=== PATIENT | female | born 1975 | race Two or more races ===

== ENCOUNTER 2025-07-15 05:17 | Emergency (ER) | payer MEDICARE, SELFPAY ==
--- OUTSIDE RECORDS SUMMARY | 2025-05-17 16:00 | XMS_ITS ---
Author Organization [facility] Address [address] [place] [address] Care Team Providers Care Research Manager Name Role Phone Renita Martin Primary Care Provider Migration, Provider Unavailable Unavailable [facility] Conversion Encounter Medications Medication SIG (Take, Route, Frequency, Duration) Notes Start Date End Date Status ALBUTEROL (EQV-VENTOLIN HFA) 90 MCG/INH 2 INH INHALED EVERY 6 HOURS for 30 DAYS *Please review for potential replacement for e-prescription and drug interaction check* Active Amoxicillin 500 MG 1 cap(s) orally twice a day for 10 days 04/15/2025 Active Anoro Ellipta 62.5 MCG-25 MCG/INH 1 INH INHALED ONCE A DAY for 30 DAYS *Please review and pick correct [facility]. If intended option is not shown, discontinue and re-order from Quick Search* 02/26/2025 Active Methadone HCl 10 MG/ML 168 mg orally once a day Active IBU 800 MG 1 tab(s) orally 3 times a day for 10 days Active CEPACOL SORE THROAT EXTRA STRENGTH TANGERINE 15 MG-2.3 MG 1 JERRY ORALLY EVERY 2-4 HOURS for 5 DAYS *Please review for potential replacement for e-prescription and drug interaction check* 04/15/2025 Active Social History Sex Assigned At : Social History Observation Description Sex Assigned At Female Encounters Encounter Location Date Provider Diagnosis [id number] [place] [address] 05/17/2025 Provider Migration Plan Of Treatment Medication Medication Name Sig Start Date Stop Date Notes Amoxicillin 500 MG 1 cap(s) orally twice a day for 10 days 04/15/2025 IBU 800 MG 1 tab(s) orally 3 times a day for 10 days CEPACOL SORE THROAT EXTRA STRENGTH TANGERINE 15 MG-2.3 MG 1 JERRY ORALLY EVERY 2-4 HOURS for 5 DAYS 04/15/2025 *Please review for potential replacement for e-prescription and drug interaction check* Progress Notes * Sapna GRANADOS TDOB:0 1975 (49 yo F)Acc No.[id number]:05/17/2025 Patient: Sapna MEZA Provider: :1975 A ge:49 Y S ex:Female Date:05/17/2025 Address:[address] [place], [place] [id number] Pcp:Renita Martin Subjective: * Chief Complaints: * [facility] * Medical History: * Medications: T aking Methadone HCl 10 MG/ML Concentrate 168 mg orally once a day , Taking Anoro Ellipta 62.5 MCG-25 MCG/INH POWDER 1 INH INHALED ONCE A DAY , Notes to Pharmacist: *Please review and pick correct [facility]. If intended option is not shown, discontinue and re-order from Quick Search*, Taking ALBUTEROL (EQV-VENTOLIN HFA) 90 MCG/INH AEROSOL 2 INH INHALED EVERY 6 HOURS , Notes to Pharmacist: *Please review for potential replacement for e-prescription and drug interaction check* Objective: * Vitals: Assessment: Plan: * Treatment: * Images: Billing Information: * Visit Code: * Procedure Codes: * Electronic signature of Prov ider Migration on 07/15/2025 at 06:21 AM EST Sign off status: Pending * Provider: Date: 0 05/17/2025 Generated for Anton cisneros/Leticia/Maddismitting on: 09/14/2024 06:21 AM EST
--- OUTSIDE RECORDS SUMMARY | 2025-06-04 06:30 | XMS_ITS ---
Author Organization [facility] Address [address] [place] [id number] Care Team Providers Care Community Health Representative Name Role Phone Renita Martin Primary Care Provider REASON FOR VISIT Office: PAP Medications Medication SIG (Take, Route, Frequency, Duration) Notes Start Date End Date Status CEPACOL SORE THROAT EXTRA STRENGTH TANGERINE 15 MG-2.3 MG 1 JERRY ORALLY EVERY 2-4 HOURS for 5 DAYS *Please review for potential replacement for e-prescription and drug interaction check* 04/15/2025 Active Amoxicillin 500 MG 1 cap(s) orally twice a day for 10 days 04/15/2025 Active ALBUTEROL (EQV-VENTOLIN HFA) 90 MCG/INH 2 INH INHALED EVERY 6 HOURS for 30 DAYS *Please review for potential replacement for e-prescription and drug interaction check* Active Anoro Ellipta 62.5 MCG-25 MCG/INH 1 INH INHALED ONCE A DAY for 30 DAYS *Please review and pick correct strength-formulatio n from [employer] options. If intended option is not shown, discontinue and re-order from Quick Search* 02/26/2025 Active IBU 800 MG 1 tab(s) orally daily for 30 days As needed Active Methadone HCl 10 MG/ML 168 mg orally once a day Active Social History Sex Assigned At : Social History Observation Description Sex Assigned At Female Encounters Encounter Location Date Provider Diagnosis [address] [address] 06/04/2025 Renita Martin Plan Of Treatment No Information Progress Notes * Sapna GRANADOS TDOB:0 1975 (49 yo F)Acc No.[id number]:06/04/2025 Progress Notes Patient: Sapna MEZA Provider: MARY Cooley :1975 A ge:49 Y S ex:Female Date:06/04/2025 Address:[address] [place] [id number] Subjective: * Chief Complaints: * 1 . Office: PAP. * Medical History: * Medications: T aking Methadone HCl 10 MG/ML Concentrate 168 mg orally once a day , Taking Anoro Ellipta 62.5 MCG-25 MCG/INH POWDER 1 INH INHALED ONCE A DAY , Notes to Pharmacist: *Please review and pick correct strength-formulation from [email or web address] options. If intended option is not shown, discontinue and re-order from Quick Search*, Taking ALBUTEROL (EQV-VENTOLIN HFA) 90 MCG/INH AEROSOL 2 INH INHALED EVERY 6 HOURS , Notes to Pharmacist: *Please review for potential replacement for e-prescription and drug interaction check*, Taking Amoxicillin 500 MG Capsule 1 cap(s) orally twice a day , Taking CEPACOL SORE THROAT EXTRA STRENGTH TANGERINE 15 MG-2.3 MG LOZENGE 1 JERRY ORALLY EVERY 2-4 HOURS , Notes to Pharmacist: *Please review for potential replacement for e-prescription and drug interaction check*, Taking IBU 800 MG Tablet 1 tab(s) orally daily As needed Objective: * Vitals: Assessment: Plan: * Treatment: * Images: Billing Information: * Visit Code: * Procedure Codes: Care Plan Details* * Electronic signature of Ramesh Martin on 07/15/2025 at 06:21 AM EST Sign off status: Pending * Provider: MARY Cooley Date: Generated for Anton cisneros/Leticia/Harika on: 09/14/2024 06:21 AM EST
--- NOTE | ~2025-07-15 | CT_ITS ---
EXAMINATION: CTA NECK WITH CONTRAST (STROKE) CTA BRAIN WITH CONTRAST (STROKE) CLINICAL INFORMATION: Severe occipital headache. Left upper extremity numbness. COMPARISON: Correlated to MRI brain report dated March 26, 2009. TECHNIQUE: CTA of the head and neck was performed in the axial plane from the mediastinum to the skull vertex using 70 mL Omnipaque 350 intravenous contrast. Additional reformatted multiplanar images including maximum intensity projection MIP images are generated on the CT workstation. This CT examination was performed using dose optimization techniques as appropriate, variously including the following: *Automated exposure control *Adjustment of mA and/or kV according to patient size (this includes techniques or standardized protocols for targeted exams where dose is matched to indication/reason for exam; i.e. extremities or head) *Use of iterative reconstruction technique DLP: 1378 mGy-cm FINDINGS: The degree of stenosis determined by criteria similar to NASCET. Brain: No acute intracranial hemorrhage, mass effect, midline shift, hydrocephalus or herniation. Ballesteros-white matter differentiation is normal. Posterior cranial fossa contents demonstrated no gross hemorrhage or mass effect. Normal position of the cerebellar tonsils. Sellar/suprasellar region demonstrated no gross masses. Retention cysts versus polyp, left maxillary sinus. No air-fluid levels in the paranasal sinuses. Poor pneumatization left frontal sinus. Tympanic cavities and mastoid air cells are aerated. Chest CTA: No aneurysm or dissection, thoracic aortic arch. Its main branches are patent. Neck CTA: Right CCA: Normal patency. No focal stenosis. No intimal flap. Right ICA: No plaque. Normal patency. No focal stenosis. No intimal flap. Left CCA: Normal patency. No focal stenosis. No intimal flap. Left ICA: No plaque. Normal patency. No focal stenosis. No intimal flap. V1/V2 segments: Normal patency. No focal stenosis. No intimal flap. Left vertebral artery is dominant. Origin from the subclavian arteries. Brain CTA: Anterior cerebral circulation: ICAs: Petrous, cavernous and supracavernous segments are patent without focal stenosis or abrupt cut off. No intimal irregularity at the ICA terminus. MCA's: Normal patency. No focal stenosis. No abrupt cut off. Bifurcation/trifurcations demonstrated no vascular abnormality. ACAs: Normal patency. No focal stenosis. No abrupt cut off. No vascular irregularity. Ophthalmic arteries are patent without vascular abnormality. Anterior communicating artery is patent without abnormality. Posterior communicating arteries are not fully enhanced. Posterior cerebral circulation: V3/V4 segments: Left vertebral artery is dominant. No focal stenosis. No intimal flap. Basilar artery is patent without focal stenosis or intimal flap. Basilar artery tip is normal. Posterior inferior cerebral arteries and anterior inferior cerebellar arteries are patent without gross abnormality. Superior cerebellar arteries are patent and normal. 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 No focal stenosis. No abrupt cut off. No vascular irregularity. Ancillary findings: Main cerebral venous sinuses are patent without intraluminal filling defects. Prominent thyroid gland without dominant nodule. Probable central disc bulging C3-4. Mucosal thickening, ethmoid cells and prominent superior turbinates reducing the posterior nasal cavity. Metallic piercing of the anterior tongue. Subtle pulmonary mosaic pattern. CT/CT angio head neck IMPRESSION: No main cerebral artery occlusion or embolus or gross cerebral aneurysm. No high degree stenosis or dissection, vessels of the neck. Mild prominent thyroid gland. Retention cysts versus polyp, left maxillary sinus and mild paranasal sinus disease, ethmoid air cells and superior turbinates. This critical test result is communicated to: Emergency physician Dr. Liza Arredondo on July 15, 2025 at 9:11 AM. Electronically signed by: Burke Blue MD 07/15/2025 09:11 AM [facility] [place]
[2025-07-15 05:22] VITALS: BP 149/76; PULSE 69; RESP 20; TEMP 36.1; O2SAT 100; BMI 16.9
--- NOTE | 2025-07-15 05:24 | ECG_ITS ---
Test Reason : PAPL Blood Pressure : */* mmHG Vent. Rate : 62 BPM Atrial Rate : 62 BPM P-R Int : 130 ms QRS Dur : 76 ms QT Int : 448 ms P-R-T Axes : 54 78 75 degrees QTcB Int : 454 ms Normal sinus rhythm Normal ECG When compared with ECG of 26-Mar-2009 21:58, MANUAL COMPARISON REQUIRED PREVIOUS ECG IS INCOMPATIBLE Referred By: Generic ED Physician Electronically Signed By: SHANNAN JORGE MD
--- NOTE | 2025-07-15 05:55 | ED.GENADULT ---
HPI - General Adult General Chief complaint: Neck Pain/Injury Stated complaint: not feeling well Time Seen by Provider: 07/15/25 05:54 History of Present Illness ED Provider: Dr. Arredondo HPI narrative: 49 y/o F patient; without significant PMH; presents reporting occipital headache that began at approx 5 - 6pm yesterday 07/14. Headache was more severe and lasted longer than prior headaches have. She took motrin without relief. She did not sleep well overnight and when she woke up this morning she had a left-sided neck pain and her left arm was numb. Since being in the hospital her left arm numbness has resolved but she still has the headache. + Photophobia. Denies: nausea/vomiting, abdominal pain, fever or chills, SOB, cough/congestion. She denies known injury or trauma. Related Data Allergies Allergy/AdvReac Type Severity Reaction Status Date / Time No Known Allergies Allergy Verified 07/15/25 05:24 Review of Systems Review of Systems: Yes all other systems are reviewed and are negative Neurologic: Denies Abnormal speech present and Denies Sensory deficit (Neuro) [facility] Past Medical History Attestation statement: The following information was validated with the patient. Source: unable to obtain Social History Social History Smoked in Last 30 Days: Yes Use of substances other than those prescribed or required for medical reasons: No Advance Directives: No Advance Directives Information Provided: Yes Physical Exam ED Vital Signs: Vital Signs - 24 hr 07/15/25 05:22 07/15/25 07:44 Temperature 96.9 F Pulse Rate 69 59 Respiratory Rate 20 18 Blood Pressure 149/76 H 101/54 L Pulse Oximetry 100 99 Oxygen Delivery Method Room Air Room Air BMI result Body Mass Index 16.9 Patient is afebrile and hemodynamically stable. Const General: cooperative and no acute distress Orientation/consciousness: patient oriented x3 HENMT Head: Yes normal to inspection and Yes atraumatic Eyes General: appearance normal, both eyes and all related structures Pupils: Equal, round and reactive pupils present EOM: EOMs intact bilaterally Neck Other: Reproducible left-sided trapezius tenderness Neck: Yes normal visual inspection, Yes full ROM and Yes supple Chest Chest palpation & inspection: normal inspection of the chest and normal palpation of entire chest wall Resp Effort & Inspection: normal respiratory effort, able to speak in complete sentences and no cough Auscultation: clear to auscultation bilaterally Cardio Rate: regular rate Rhythm: regular rhythm Peripheral pulses: Peripheral pulses 2+ throughout GI Inspection: Yes normal to inspection, No Abdominal wall edema and No distended Palpation (GI): Soft to palpation, not firm, nontender, no guarding and not rigid Auscultation: normal bowel sounds Back/Spine/Pelvis Back: No back tenderness Neuro General: patient oriented x3 Cranial nerves: Yes Equal, round and reactive pupils present Cognition (Neuro): normal cognition Speech: No Abnormal speech present Gait exam (Neuro): Normal gait present Motor exam (neuro): 5/5 motor strength present throughout Sensory Exam: No Sensory deficit (Neuro) Coordination: [id number] test normal and Normal rapid alternating movements of the distal upper extremity present (Neuro) Course Course Course Narrative: Patient is afebrile and hemodynamically stable. Neurological exam is reassuring. Patient states she has not had imaging of her brain previously. This headache is atypical for the patient, it began over 6 hours ago. As such will obtain CTA Head/Neck to r/o SAH. In the meantime will provide benadryl, reglan, IVF, and tylenol for headache management. CTA is unremarkable for acute abnormalities. Patient re-evaluated. She is sleeping comfortably in no acute distress. She reports full resolution of her headache. Informed of incidental sinus disease and mildly enlarged thyroid. Patient is ambulatory without difficulty. Plan: Discharge to home Condition: Stable Medications Administered Discontinued Medications Generic Name Dose Route Start Last Admin Trade Name Libra PRN Reason Stop Dose Admin Diphenhydramine HCl 25 mg 07/15/25 06:26 07/15/25 06:33 Diphenhydramine Hcl 50 Mg/Ml Vial IVPUSH 07/15/25 06:27 25 mg ONCE ONE Administration Sodium Chloride 1,000 mls @ 999 mls/hr 07/15/25 06:30 07/15/25 07:33 Ns IV 07/15/25 07:30 Infused .Q1H1M MARIAM Infusion Acetaminophen 1,000 mg in 100 mls @ 400 mls/hr 07/15/25 06:26 07/15/25 07:16 Ofirmev IV 07/15/25 06:40 Infused ONCE ONE Infusion Iohexol 100 ml 07/15/25 08:37 07/15/25 08:37 Iohexol 350 Mg/Ml 100 Ml Infus..Btl IV 07/15/25 08:38 70 ml ONCE ONE Administration Metoclopramide HCl 10 mg 07/15/25 06:26 07/15/25 06:34 Metoclopramide Hcl 10 Mg/2 Ml Vial IVPUSH 07/15/25 06:27 10 mg ONCE ONE Administration Medical Decision Making Independent Interpretation I performed an independent interpretation of an: EKG Interpretation: EKG independently interpreted by myself as NSR 62BPM with normal intervals. Radiology Impression Discussion of test interpretation with radiology: I have reviewed the radiologist's reading. Radiologist Impression: EXAMINATION: CTA NECK WITH CONTRAST (STROKE) CTA BRAIN WITH CONTRAST (STROKE) CLINICAL INFORMATION: Severe occipital headache. Left upper extremity numbness. COMPARISON: Correlated to MRI brain report dated March 26, 2009. TECHNIQUE: CTA of the head and neck was performed in the axial plane from the mediastinum to the skull vertex using 70 mL Omnipaque 350 intravenous contrast. Additional reformatted multiplanar images including maximum intensity projection MIP images are generated on the CT workstation. This CT examination was performed using dose optimization techniques as appropriate, variously including the following: *Automated exposure control *Adjustment of mA and/or kV according to patient size (this includes techniques or standardized protocols for targeted exams where dose is matched to indication/reason for exam; i.e. extremities or head) *Use of iterative reconstruction technique DLP: 1378 mGy-cm FINDINGS: The degree of stenosis determined by criteria similar to NASCET. Brain: No acute intracranial hemorrhage, mass effect, midline shift, hydrocephalus or herniation. Ballesteros-white matter differentiation is normal. Posterior cranial fossa contents demonstrated no gross hemorrhage or mass effect. Normal position of the cerebellar tonsils. Sellar/suprasellar region demonstrated no gross masses. Retention cysts versus polyp, left maxillary sinus. No air-fluid levels in the paranasal sinuses. Poor pneumatization left frontal sinus. Tympanic cavities and mastoid air cells are aerated. Chest CTA: No aneurysm or dissection, thoracic aortic arch. Its main branches are patent. Neck CTA: Right CCA: Normal patency. No focal stenosis. No intimal flap. Right ICA: No plaque. Normal patency. No focal stenosis. No intimal flap. Left CCA: Normal patency. No focal stenosis. No intimal flap. Left ICA: No plaque. Normal patency. No focal stenosis. No intimal flap. V1/V2 segments: Normal patency. No focal stenosis. No intimal flap. Left vertebral artery is dominant. Origin from the subclavian arteries. Brain CTA: Anterior cerebral circulation: ICAs: Petrous, cavernous and supracavernous segments are patent without focal stenosis or abrupt cut off. No intimal irregularity at the ICA terminus. MCA's: Normal patency. No focal stenosis. No abrupt cut off. Bifurcation/trifurcations demonstrated no vascular abnormality. ACAs: Normal patency. No focal stenosis. No abrupt cut off. No vascular irregularity. Ophthalmic arteries are patent without vascular abnormality. Anterior communicating artery is patent without abnormality. Posterior communicating arteries are not fully enhanced. Posterior cerebral circulation: V3/V4 segments: Left vertebral artery is dominant. No focal stenosis. No intimal flap. Basilar artery is patent without focal stenosis or intimal flap. Basilar artery tip is normal. Posterior inferior cerebral arteries and anterior inferior cerebellar arteries are patent without gross abnormality. Superior cerebellar arteries are patent and normal. embedded systems designer: Normal patency. No focal stenosis. No abrupt cut off. No vascular irregularity. Ancillary findings: Main cerebral venous sinuses are patent without intraluminal filling defects. Prominent thyroid gland without dominant nodule. Probable central disc bulging C3-4. Mucosal thickening, ethmoid cells and prominent superior turbinates reducing the posterior nasal cavity. Metallic piercing of the anterior tongue. Subtle pulmonary mosaic pattern. CT/CT angio head neck IMPRESSION: No main cerebral artery occlusion or embolus or gross cerebral aneurysm. No high degree stenosis or dissection, vessels of the neck. Mild prominent thyroid gland. Retention cysts versus polyp, left maxillary sinus and mild paranasal sinus disease, ethmoid air cells and superior turbinates. This critical test result is communicated to: Emergency physician Dr. Liza Arredondo on July 15, 2025 at 9:11 AM. Electronically signed by: Burke Blue MD 07/15/2025 09:11 AM [facility] Discharge Plan Discharge Clinical Impression: Headache Patient Disposition: Home, Self-Care Instructions: Acute Headache (DC) Additional Instructions: You were seen today for a headache. You had a CTA of your head and neck which was reassuring. You were treated with IV fluids, tylenol, benadryl and reglan with improvement in your headache. Please follow up with a primary doctor to discuss your recent emergency department visit and for re-evaluation. Discuss your mildly enlarged thyroid at that time. Return to the emergency department for: Slurred speech Worsening or changing headache not responsive to tylenol/ibuprofen Numbness/weakness/tingling in your arms or legs Print Language: Urdu
--- OUTSIDE RECORDS SUMMARY | 2025-07-15 06:22 | XMS_ITS | Patient Health Record ---
Author Organization [facility] Address [address] [place] [address] Care Team Providers Care Medical Collections Name Role Phone Renita Martin Primary Care Provider [facility], Nursing Unavailable [phone] Migration, Provider Unavailable Unavailable Allergies No Known Allergies Results Component Value Reference Range Notes Rapid Strep OSOM A Reviewed date:04/15/2025 01:33:29 PM Interpretation:Positive Performing Lab: Notes/Report: Positive Reason For Referral No Information Medications Medication SIG (Take, Route, Frequency, Duration) [...] daily for 30 days As needed Active Social History Tobacco Use: Social History Observation Description Date Details (start date - stop date) Current Smoker NA - NA Sex Assigned At : Social History Observation Description Sex Assigned At Female Tobacco Use Assessment MU Question Answer Notes What is your current smoking status? current smo ker How often do you smoke? every day How many cigarettes a day do you smoke? 6-10 How soon after you wake up do you smoke your fir st cigarette? Within 5 minutes Are you interested in quitting? not ready to cha t Patient counseled on the ashley nielsens of tobacco use and advised to quit: 10/03/2023 Problems Problem Type SNOMED Code ICD Code Onset Dates Problem Status W/U Status Risk Notes Problem Opioid dependence in remission (668755629) Opioid dependence, in remission (F11.21) Active confirmed Problem Tobacco user (470702510) Nicotine dependence, cigarettes, uncomplicated (F17.210) Active confirmed Problem Recurrent major depression (32434961) Major depressive disorder, recurrent, unspecified (F33.9) Active confirmed Problem Anxiety disorder (844276905) Anxiety disorder, unspecified (F41.9) Active confirmed Problem Cardiac arrhythmia (804137359) Cardiac arrhythmia, unspecified (I49.9) Active confirmed Problem Arthropathy (361356056) Arthropathy, unspecified (M12.9) Active confirmed Problem Amenorrhea (18574263) Amenorrhea, unspecified (N91.2) Active confirmed s/p uterine ablation Problem Shortness of breath (160891687) Shortness of breath (R06.02) Active confirmed Problem Electrocardiogram abnormal (833155163) Abnormal electrocardiogram [ECG] [EKG] (R94.31) Active confirmed Problem BMI less than 20 (514205092) Body mass index [BMI] 19.9 or less, adult (Z68.1) Active confirmed Problem Opioid abuse (4516326) Opioid abuse, uncomplicated (F11.10) Inactive confirmed Problem Cannabis abuse (33025533) Cannabis abuse, uncomplicated (F12.10) Inactive confirmed Problem Sleep disorder (70634778) Sleep disorder, unspecified (G47.9) Inactive confirmed Problem Gastro-esophageal reflux disease without esophagitis (874722730) Gastro-esophageal reflux disease without esophagitis (K21.9) Inactive confirmed Problem Discharge from nipple (06997963) Nipple discharge (N64.52) Inactive confirmed Problem Headache (01557196) Headache, unspecified (R51.9) Inactive confirmed Problem Body mass index 20-24 - normal (269302331) Body mass index [BMI] 20.0-20.9, adult (Z68.20) Inactive confirmed Vital Signs Temperature 99.4 degrees Fahrenheit 04/15/2025 Blood pressure diastolic 74 04/15/2025 Oximetry 97 04/15/2025 Height 67 in 04/15/2025 Blood pressure systolic 122 04/15/2025 Weight 110.4 lbs 03/20/2025 BMI 17.29 kg/m2 03/20/2025 Encounters Encounter Location Date Provider Diagnosis [address] [address] 05/17/2025 Provider Migration [address] [address] 06/04/2025 Eddieliza Casionan [address] [address] 03/20/2025 Eddieliza Casionan Encounter for screening for COVID-19 Z11.52 ; Cardiac arrhythmia, unspecified I49.9 ; Nicotine dependence, cigarettes, uncomplicated F17.210 ; Amenorrhea, unspecified N91.2 ; Opioid dependence, in remission F11.21 ; Abnormal electrocardiogram [ECG] [EKG] R94.31 and Body mass index [BMI] 19.9 or less, adult Z68.[address] [address] 04/15/2025 [facility] Acute pharyngitis, unspecified J02.[address] [address] 07/16/2024 Eddieliza Casionan [address] [address] 10/17/2024 Eddieliza Casionan [address] [address] 02/26/2025 Eddieliza Casionan [address] [address] 04/15/2025 Eddieliza Casionan [address] [address] 04/18/2025 Eddieliza Casionan [address] [address] 05/28/2025 Eddieliza Casionan Assessments Encounter Date Diagnosis (ICD Code) Assessment Notes Treatment Notes Treatment Clinical Notes Section Notes 03/20/2025 Cardiac arrhythmia, unspecified (ICD-10 - I49.9) Our staff called cardiology, At the end of this visit, Cardiology called back to set up schedule with client Spent OV discussing the importance of close f/u with cardiology. She gave up calling for f/u after metoprolol stated by cardiology was making her dizzy 03/20/2025 Encounter for screening for COVID-19 (ICD-10 - Z11.52) Covid screening is negative. Discussed in detail with patient how to practice social distancing by avoiding public spaces and crowds now, wearing a mask in public to keep nose and mouth covered, and washing hands frequently especially before eating and after using the bathroom. Return to clinic if you develop any symtpoms of concern to be rescreened or go to the emergency room if you are having concerning symptoms for COVID-19. 04/15/2025 Acute pharyngitis, unspecified (ICD-10 - J02.9) Strep test done and positive. T/E to Renita Martin NP. Pt instructed to not share drinking or eating utensils, etc. Scripts to be sent in to her pharmacy. RTC if symptoms worsen. Pt agrees with plan. 03/20/2025 Nicotine dependence, cigarettes, uncomplicated (ICD-10 - F17.210) encouraged abstinence 03/20/2025 Amenorrhea, unspecified (ICD-10 - N91.2) s/p uterine ablation s/p uterine ablation 03/20/2025 Opioid dependence, i n remission (ICD-10 - F11.21) Reports remaining on remission 03/20/2025 Abnormal electrocardiogram [ECG] [EKG] (ICD-10 - R94.31) Sinus Rhythm with Ventricular bigeminies 03/20/2025 Body mass index [BMI ] 19.9 or less, adult (ICD-10 - Z68.1) Lost a lot of weight. Reports loss of appetite and intemittent nausea likely secondary topoor cardiac output 03/20/2025 Other Plan Of Treatment Pending Test Test Name Order Date Mammogram-Screening 10/03/2023 Pulmonary function test w/o blood gases 11/23/2021 EKG 11/01/2021 B TYPE NATRIURETIC PEPTIDE (BNP) 022 CHLAMYDIA/N. GONORRHOEAE RNA, TMA 2021 FECAL GLOBIN BY IMMUNOCHEMISTRY 12/30/19 23 FECAL GLOBIN BY IMMUNOCHEMISTRY 05/27/20 24 HEPATITIS B SURFACE AB IMMUNITY, QN 10/06 B-TYPE NATRIURETIC PEPTIDE 11/02/2021 CHLAMYDIA / GC DNA W RFLX 12/29/2022 CHLAMYDIA / GC DNA W RFLX 11/02/2021 CR Chest Routine 2 Views 11/01/2021 MR Brain WO 12/14/2021 EKG 12/29/2022 EKG 09/06/2023 Insurance Providers Payer Name Payer Address Payer Phone Subscriber Number Group Number Insured Name Patient Relationship to Insured Coverage Start Date Coverage End Date [place] Medicare [place] [employer] [address] [place] [address] [id number] MadelaineEufemia annamarieSapna Self - patient is the insured [place] Medicaid Standard [address] [place] [address] [id number] Sapna Long Self - patient is the insured Medical (General) History Medical History History ICD Code 2004 - Dx with Lupus by rhumatologist, Kristi Jhaveri, [facility] 2004 - Dx Rhumatoid arthritis, Dr. Hamlet parmar, [facility] 2018 - Dx Anxiety, Depressio n, PTSD by [facility] - Therapist - Lilo David, Cannabis use PVC's on EKG 09/28/2021 Poor appetite, weight loss Fatigue, periods of SOB/labored breathin g Surgical History Surgery Date(Month/Year) Bilateral bone shaving - [facility] 2007 Multiple arthrosocopies in knees - [facility] 2004-present Bilateral Knee Replacement s/t rheumatoi d arthritis - [facility] 2003 Hospitalization History Reason Date(Month/Year) Vaginal Deliveries 1992, 1995 Knee Replacements, Aminta then Ricardo 200 4 Blood clot in brain, Admitted to [facility]. Dr. Santos. 2006 Prov Detox 2005
--- OUTSIDE RECORDS SUMMARY | 2025-07-15 06:22 | XMS_ITS | Encounter Summary ---
Author Organization [facility] Address [address] [place] [address] Care Team Providers Care Rn Hospice Name Role Phone Pippa Mcnamara Primary Care Provider [phone] Reason for Visit * Reason Onset Date Comments Procedure 06/10/2025 PVC Ablation Encounter Details Date Type Department Care Team (Late st Contact Info) Description 06/10/2025 Telephone [facility] - [facility] [address] [facility] [address] [place] [phone] Reg Whyte MD [address] [place] [address] [place] [phone] Social History Tobacco Use Types Packs/Day Years Used Date Smoking Tobacco: Every Day Cigarettes Smokeless Tobacco: Current Alcohol Use Standard Drinks/Week Comments Not Currently 0 (1 standard drink = 0.6 oz pur e alcohol) Comments Unknown Sex and Gender Information Value Date Recorded Sex Assigned at Not on file Legal Sex Female 5:03 AM EST Gender Identity Not on file Sexual Orientation Not on file documented as of this encounter Progress Notes * Margie Dawson - 07/11/2025 3:07 PM EST Prior authorization is not required for cpt code 33078. * Enrico Zaragoza - 07/10/2025 3:15 PM ESTAddended by: ENRICO ZARAGOZA on: 07/10/2025 03:15 PM Modules accepted: Orders * Enrico Zaragoza - 07/10/2025 3:05 PM EST PVC Ablation 50586 Dx Afib i49.3 w/ JPM on 07.28.25 at [facility] * Enrico Zaragoza - 07/10/2025 2:18 PM EST Spoke with patient about procedure. Scheduled on 07.28.[address] Whyte at [facility] at 12pm Mailing packet to patient today Packet mailed to patient includes instructions with medications, follow-up, lab orders, pre/post procedural care, my direct number and pamphlet for procedure Confirmed address on file Arrival time 10am Bloodwork to be done within 30 days of and or at least a week before procedure at any lab of choice, *[facility], [facility] or [facility] ect* (Labs are not fasting) - ATTACHED TO PACKET (3 papers stapled together) Medication instructions are to hold: DILTIAZEM 48 hours before procedure Packet instructs the patient if they start any new medications to call the office. It may need special instructions to avoid any cancellations You can take all your regular morning medications with some water These instructions are given verbal and written and understood Patient aware if they do NOT follow these instructions or show up to procedure they will have to berescheduled to next available which could take up to 6 to 10 weeks. Patient will have to be fasting from midnight night before procedure. Patient made aware that they will need to make arrangements for transportation to procedure and upon discharge at the hospital - no ride will means they will cancel procedure Patient is to report to [facility] through [facility] - 1st floor Patient Desk Information Patient agreed to all instructions and date, time and location above via phone Booking sheet and confirmation received documented in this encounter Plan of Treatment Upcoming Encounters Date Type Department Care Team (Late st Contact Info) Description 09/05/2025 8:10 AM EST Office Visit [facility] - [address] [place] [address] Miranda Fonseca NP [address] [place] [address] [place] [address] Scheduled Orders Name Type Priority Associated Diagnoses Orde r Schedule Complete blood count Lab Routine PVC (premature ventricular contraction) 1 Occurrences starting 07/10/2025 until 07/10/2026 Prothrombin time with INR Lab Routine PVC (premature ventricular contraction) 1 Occurrences starting 07/10/2025 until 07/10/2026 Basic metabolic panel Lab Routine PVC (premature ventricular contraction) 1 Occurrences starting 07/10/2025 until 07/10/2026 documented as of this encounter Visit Diagnoses Diagnosis PVC (premature ventricular contraction)- Primary Other premature beats documented in this encounter Care Teams Rn Hospice Relationship Specialty Start Date End Date Pippa Mcnamara PA [address] [place] [id number] PCP - General 11/17/21 documented as of this encounter
--- OUTSIDE RECORDS SUMMARY | 2025-07-15 06:22 | XMS_ITS | Clinical Summary ---
Author Organization [address] [place] [address] [place] [phone] Phone Care Team Providers Care Gum Sprayer Name Role Phone Pippa Mcnamara Primary Care Provider [phone] Allergies No known active allergies Medications albuterol HFA (PROAIR HFA ; PROVENTIL HFA ; VENTOLIN HFA) 90 mcg/actuation inhaler Inhale 2 puffs by mouth every 4 (four) hours if needed. Active methadone (DOLOPHINE) 10 mg/mL concentrated solution Take 15.8 mL (158 mg total) by mouth 1 (one) time each day. Active ibuprofen (ADVIL,MOTRIN) 800 mg tablet Take 1 tablet (800 mg total) by mouth if needed for mild pain. Active dilTIAZem CD (CARDIZEM CD) 120 mg 24 hr capsule Take 1 capsule (120 mg total) by mouth 1 (one) time each day. 30 each 2 Active Active Problems Problem Noted Date Diagnosed Date Shortness of breath 03/25/2025 Assessment & Plan (03/25/2025 11:55 AM EDT): She reports shortness of breath that previously was noted with exertion but is now occurring even at rest. She has become increasingly more fatigued. Occasionally she notices lower extremity edema although she appears euvolemic on physical exam today. She denies weight gain. My concern is she is at risk for PVC induced cardiomyopathy. I will update echocardiogram to reassess cardiac function and structures. Hopefully with the addition of diltiazem PVC frequency will lessen as it is likely this is contributing to her symptoms. PVC (premature ventricular contraction) 03/24/20 Assessment & Plan (03/25/2025 11:49 AM EDT): The patient has a history of frequent PVCs. A 48-hour Holter monitor completed in January 2022 revealed normal sinus rhythm with a PVC burden of 32.3%. Left heart catheterization in February 2022 showed normal coronary anatomy. An EKG done at her PCP office last week showed sinus rhythm with frequent PVCs in a bigeminy pattern and a ventricular rate 81 bpm. Physical exam is consistent with this finding. She did not tolerate metoprolol in the past. I have asked her to start diltiazem 120 mg daily for suppression. She will contact the office if she develops unwanted side effects. I would also like her to see the electrophysiology service to discuss other possible treatment options like PVC ablation. Chest pain 03/24/2025 Assessment & Plan (03/25/2025 11:48 AM EDT): She continues to report episodes of atypical chest discomfort. Left heart catheterization on 02/11/2022 showed a normal LMCA, LAD, LCx, and RCA ruling out ischemia. Symptoms likely related to frequent PVCs. Encounters Date Type Department Care Team Description 07/04/2025 Telephone [facility] Cardiology [facility] [address] [address] [place] [address] Ivanna Barajas NP 06/13/2025 9:30 AM EDT Ancillary Procedure [facility] [address] [place] [address] PVC (premature ventricular contraction) 06/10/2025 Telephone [facility] [address] [place] [address] Reg Whyte MD 06/02/2025 10:25 AM EDT Consult [facility] [address] [place] [address] Reg Whyte MD PVC (premature ventricular contraction) (Primary Dx) from Last 3 Months Surgical History Surgery Date Site/Laterality Comments TOTAL KNEE ARTHROPLASTY 2003 Bilateral PROCEDURE: HISTORICAL TOTAL KNEE REPLACE OTHER SURGICAL HISTORY PROCEDURE: ID ARTHRS KNEE DRILL OSTEOCHONDRITIS DISSECANS GRFG; COMMENT: multiple - [facility] OTHER SURGICAL HISTORY 2007 Bilateral PROCEDURE: HISTORY OTHER; COMMENT: bone shaving - [facility] Medical History Medical History Date Comments Lupus DX:Lupus Rheumatoid arthritis (CMS/HC C V24, CMS/HCC V28) DX:Rheumatoid arthritis (HCC ) Anxiety DX:Anxiety Depression DX:Depression PTSD (post-traumatic stress disorder) DX:PTSD (post-traumatic stress disorder) Cannabis abuse, daily use DX:Can nabis abuse, daily use Poor appetite DX:Poor appetite Weight loss DX:Weight loss Fatigue DX:Fatigue SOB (shortness of breath) DX:SOB (shortness of breath) Bigeminy DX:Bigeminy; COM MENT: w/ bilateral enlargement Feeling unwell DX:Feeling unwel l Hyperlipidemia Migraines Anxiety Family History Medical History Relation Name Comments Heart attack Father Heart failure Father Cervical cancer Mother Relation Name Status Comments Father Mother Social History Tobacco Use Types Packs/Day Years [...] on file Sexual Orientation Not on file Obstetrics History Last Filed Vital Signs Vital Sign Reading Time Taken Comments Blood Pressure 100/60 06/02/2025 10:16 AM EDT Pulse 110 06/02/2025 10:16 AM EDT Temperature - - Respiratory Rate - - Oxygen Saturation 99% 06/02/2025 10:16 AM EDT Inhaled Oxygen Concentration - - Weight 47.2 kg (104 lb) 06/02/2025 10:16 AM EDT Height 167.6 cm (5' 6 ) 06/02/2025 10:16 AM EDT Body Mass Index 16.79 06/02/2025 10:16 AM EDT Plan of Treatment Upcoming Encounters Date Type Department Care Team (Late st Contact Info) Description 09/05/2025 8:10 AM EST Office Visit [facility] - [facility] [address] [facility] [address] [place] [address] Miranda Fonseca NP [address] [place] [address] [place] [address] Health Maintenance Due Date Last Done Comments Breast Cancer Screening 1976 Colorectal Cancer Screening: Colonoscopy 1976 DTaP,Tdap,and Td Vaccines (1 - Tdap) 1995 Hepatitis A Vaccines (1 of 2 - Risk 2-dose series) 1995 Hepatitis B Vaccines (1 of 3 - 19+ 3-dose series) 1995 Pneumococcal Vaccine: Pediat rics (0 to 5 Years) and At-Risk Patients (6 to 49 Years) (1 of 2 - PCV) 1995 Cervical Cancer Screening: P ap Smear 1997 Cholesterol Screening (Lipid Panel) 08/07/2022 HIV Screening 08/07/2022 Hepatitis C Screening 08/07/2022 Medicare Annual Wellness Visit 08/07/2022 Social Influencers of Health Screening 08/07/2022 Depression Screening 2024 COVID-19 Vaccine (1 - 2024-2 6 season) 2025 Influenza Vaccine (#1) 2025 RSV Immunization Adult Patie nts (1 - 1-dose 75+ series) 2051 HIB Vaccines Aged Out No longer eligi ble based on patient's age to complete this topic HPV Vaccines Aged Out No longer eligi ble based on patient's age to complete this topic IPV Vaccines Aged Out No longer eligi ble based on patient's age to complete this topic MMR Vaccines Aged Out No longer eligi ble based on patient's age to complete this topic Meningococcal ACWY Vaccine Aged Out N o longer eligible based on patient's age to complete this topic Meningococcal B Vaccine Aged Out No l onger eligible based on patient's age to complete this topic RSV Immunization Patients Un anna 20 months Aged Out No longer eligible b ased on patient's age to complete this topic Varicella Vaccines Aged Out No longer eligible based on patient's age to complete this topic Procedures Procedure Name Priority Date/Time Associated Diagnosis Comments CARDIAC HOLTER MONITOR (REPORT GENERATED IN HOUSE) Routine 06/13/2025 9:41 AM EDT PVC (premature ventricular contraction) ECG 12-LEAD Routine 06/02/2025 10:54 AM EDT PVC (premature ventricular contraction) from Last 3 Months Results * CARDIAC HOLTER MONITOR (REPORT GENERATED IN HOUSE) (06/13/2025 9:41 AM EDT) Anatomical Region Laterality Modality Cardiac Diagnost ic Narrative 06/17/2025 4:32 PM EDT [facility] DI[facility]NOSTIC [facility]ING DEPARTMENT [address] [place] [address], [address], [place] [address] TEL: FAX: Type of Test: 24 Hour Holter Monitor Date of Test: 06/13/2025 Ordering Provider: Reg Whyte MD Reason for Test: PVC (premature ventricular contraction) 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 2: No PACs. 3: Frequent PVCs, couplets, and ventricular bi/trigeminy. Occasional aberrantly conducted beats. Rare triplets. PVC [place] was 25.0%. 4: No significant pauses noted, longest R-R was 1.5 seconds at 3:05 AM. 5: Diary returned with symptoms of palpitations, lightheadedness, shortness of breath, chest pains, headache, worn out, and tired noted. EKG at those times showed Normal Sinus Rhythm and frequent PVCs, couplets, and ventricular bi/trigeminy. Heart rates were in the range of 84-108 bpm. Impression: Normal sinus rhythm with frequent PVCs with single PVCs, ventricular couplets, and periods of ventricular bigeminy/trigeminy. Total burden 25%. Morphology suggestive of left-sided focus and not coming from the outflow tract. No sustained atrial or ventricular arrhythmias. The patient has a planned ablation in the near future. us Reg Whyte MD [facility] C[facility] SERVICES PROCEDURES Final Result * ECG 12 lead (06/02/2025 10:54 AM EDT) Ventricular Rate ECG 100 BPM GEMUSE Atrial Rate 41 BPM GEMUSE QRS Duration 70 ms GEMUSE Q-T Interval 348 ms GEMUSE QTc 448 ms GEMUSE R [place] 86 degrees GEMUSE T [place] 31 degrees GEMUSE ECG Interpretation Undetermined rhythm Nonspecific T wave abnormality Abnormal ECG When compared with ECG of 07-SEP-2023 15:10, Current undetermined rhythm precludes rhythm comparison, needs review GEMUSE 06/02/2025 10:2 3 AM EDT Narrative GEMUSE - 06/02/2025 10:54 AM EDT Sinus rhythm 100 bpm with frequent PVCs. us Reg Whyte MD ECG ORDERABLES Final Result GEMUSE from Last 3 Months Insurance [employer] MEDICARE ADVANTAGE MEDICAID [place] Care Teams Gum Sprayer Relationship Specialty Start Date End Date Pippa Mcnamara PA [address] [place] [address] [facility] - General 11/17/21
[2025-07-15 07:44] VITALS: BP 101/54; PULSE 59; RESP 18; O2SAT 99
--- NOTE | 2025-07-15 08:32 | PC.NURSE ---
Care of Pt assumed at change of shift (0700.) Pt rests comfortably with eyes closed, snoring noted. Pt to CT at this time for imaging. Pt observed walking with a steady gait. NAD noted at this time.
[2025-07-15] MEDS: iohexoL 350 MG/ML 100 ML INFUS..BTL IV (08:37)
[2025-07-15 10:18] VITALS: BP 104/54; PULSE 66; RESP 20; TEMP 36.6; O2SAT 98
== END 2025-07-15 10:20 | disposition home or self-care (01) ==
PROVIDERS: Emergency Provider Emergency Medicine
DX: M54.2 Cervicalgia (principal); R51.9 Headache, unspecified; R00.2 Palpitations
CPT/HCPCS: 70496; 70498; 93005; 96361; 96374; 96375; 99285; J0131; J1200; J2765; Q9967

== ENCOUNTER → 2025-07-15 05:24 | Outpatient (BNV) | payer MEDICARE, SELFPAY | PROVIDERS: Emergency Provider Emergency Medicine; Visit Provider Internal Medicine Cardiovascular Disease | DX: R00.2 Palpitations (principal) | CPT/HCPCS: 93010 ==

== ENCOUNTER → 2025-07-15 06:26 | Outpatient (BNV) | payer MEDICARE, SELFPAY | PROVIDERS: Emergency Provider Emergency Medicine; Visit Provider Radiology Diagnostic Radiology | DX: R51.9 Headache, unspecified (principal); R20.2 Paresthesia of skin | CPT/HCPCS: 70496; 70498 ==